=== PATIENT | female | born 1975 | race Asian ===

== ENCOUNTER 2023-06-12 11:07 | Inpatient (IN) | payer OTHER ==
[2023-06-12] MEDS ORDERED: DEXTROSE 5%-LACTATED RINGERS 1,000 ML IV SCH ×2 (12:00→14:00)
[2023-06-12] MEDS: ELECTROLYTE-148 SOLN 1,000 ML IV SCH (13:40)
[2023-06-12 14:45] LABS: BASO % 0.4 % (0-2.0); EOS % 0.2 % (0-4.5); HEMOGLOBIN 10.3 GM/dL (10.7-15.3); LYMPH % 34.1 % (8-40); MCH 24.2 pg (25.7-33.7); MCHC 31.2 g/dl (32.0-36.0); MEAN CELL VOLUME 77.6 fl (80-96); MEAN PLT VOLUME 9.9 fl (7.5-11.1); MONO % 6.6 % (3.8-10.2); NEUT % 58.7 % (42.8-82.8); PLATELET COUNT 149 10^3/uL (134-434); RBC 4.25 M/mm3 (3.60-5.2); RDW 17.5 % (11.6-15.6); WHITE BLOOD COUNT 6.9 K/mm3 (4.0-10.0)
[2023-06-12 14:51] LABS: INR 0.9 (0.83-1.09); PROTHROMBIN TIME (PATIENT) 10.5 SEC (9.7-13.0)
[2023-06-12 14:54] LABS: ACTIVATED PTT 26.5 SECONDS (25.2-36.5)
[2023-06-12 14:57] VITALS: BMI 26.2
[2023-06-12 15:29] LABS: CALCIUM 8.1 mg/dL (8.5-10.1)
[2023-06-12 15:30] LABS: BLOOD UREA NITROGEN 11.4 mg/dL (7-18)
[2023-06-12 15:33] LABS: CREATININE 0.8 mg/dL (0.55-1.3)
[2023-06-12] MEDS ORDERED: OXYTOCIN 30 UNITS in 0.9% NS 30 UNIT/500 ML INFUS.BAG IVPB ONE (15:41)
[2023-06-12] MEDS ORDERED: ONDANSETRON 4 MG/2 ML VIAL ONE (15:42)
[2023-06-12] MEDS ORDERED: METOCLOPRAMIDE HCL INJECTION 10 MG/2 ML VIAL ONE (15:42)
[2023-06-12] MEDS ORDERED: ceFAZolin SODIUM 1 GM VIAL ONE (15:42)
[2023-06-12] MEDS ORDERED: PHENYLEPHRINE HCL 10 MG/1 ML SINGLE DOSE VIAL ONE (15:42)
[2023-06-12 15:43] LABS: POTASSIUM 3.9 mmol/L (3.5-5.1)
[2023-06-12] MEDS ORDERED: morphine SULFATE/PF 1 MG/2 ML (2cc Syringe - QUVA) ONE (15:44)
[2023-06-12] MEDS ORDERED: FENTANYL CITRATE/PF 50 MCG/ML VIAL ONE (15:44)
[2023-06-12] MEDS ORDERED: morphine SULFATE/PF 1 MG/2 ML (2cc Syringe - QUVA) IT ONE (16:05)
[2023-06-12] MEDS ORDERED: oxyCODONE HCL 5 MG TABLET PO PRN ×2 (16:10→16:18)
[2023-06-12] MEDS ORDERED: ONDANSETRON 4 MG/2 ML VIAL IVPB PRN (16:10)
[2023-06-12] MEDS ORDERED: KETOROLAC TROMETHAMINE 30 MG/1 ML VIAL ONE (16:57)
[2023-06-12 17:22] LABS: CORD BASE EXCESS -2.4 mmol/L (0-2); CORD HCO3 25.2 mmHg (20-29); CORD PCO2 54.8 mmHg (30-78); CORD pH 7.281 (7.14-7.44)
[2023-06-12 17:24] LABS: CORD HCO3 26.3 mmHg (20-29); CORD PCO2 58.9 mmHg (30-78); CORD pH 7.267 (7.14-7.44)
[2023-06-12] MEDS: OXYTOCIN 20 UNITS in 0.9% NS 20 UNIT/1,000 ML INFUS.BAG IV SCH ×2 (17:45→20:17)
[2023-06-12] MEDS ORDERED: OXYTOCIN 20 UNITS in 0.9% NS 20 UNIT/1,000 ML INFUS.BAG IV ONE (17:49)
[2023-06-12] MEDS ORDERED: ACETAMINOPHEN INJECTION 100 ML IVPB ONE (17:49)
[2023-06-12] MEDS: ACETAMINOPHEN 1000 MG/100 ML BAG IVPB SCH (17:55)
[2023-06-12] MEDS ORDERED: METHYLERGONOVINE MALEATE 0.2 MG/1 ML AMP IM PRN (18:00)
[2023-06-12 20:57] LABS: HIV INTERPRETATION NEGATIVE (NEGATIVE)
[2023-06-12] MEDS: SENNOSIDES/DOCUSATE COMBO (SENNA PLUS) TABLET (UD) PO SCH (21:40)
[2023-06-12] MEDS ORDERED: ACETAMINOPHEN 1000 MG/100 ML BAG IVPB SCH (22:00)
[2023-06-12] MEDS: IBUPROFEN 800 MG/8 ML IJ IVPB SCH (22:18)
[2023-06-13] MEDS: ACETAMINOPHEN 1000 MG/100 ML BAG IVPB SCH ×3 (02:25→18:12)
[2023-06-13] MEDS: IBUPROFEN 800 MG/8 ML IJ IVPB SCH ×3 (06:09→22:39)
[2023-06-13 07:01] LABS: BASO % 0.2 % (0-2.0); EOS % 0.2 % (0-4.5); HEMATOCRIT 27.2 % (32.4-45.2); HEMOGLOBIN 8.7 GM/dL (10.7-15.3); LYMPH % 17.9 % (8-40); MCH 25.1 pg (25.7-33.7); MCHC 32.1 g/dl (32.0-36.0); MEAN CELL VOLUME 78.2 fl (80-96); MEAN PLT VOLUME 10.2 fl (7.5-11.1); MONO % 6.6 % (3.8-10.2); NEUT % 75.1 % (42.8-82.8); PLATELET COUNT 124 10^3/uL (134-434); RBC 3.48 M/mm3 (3.60-5.2); WHITE BLOOD COUNT 8.4 K/mm3 (4.0-10.0)
[2023-06-13] MEDS: PRENATAL VITAMINS W/ FOLIC ACID TABLET (FP) PO SCH (10:21)
[2023-06-13] MEDS: SIMETHICONE 80 MG TAB.CHEW (FP) PO PRN ×2 (10:21→21:31)
[2023-06-13] MEDS ORDERED: BISACODYL 10 MG SUPP.RECT RC PRN (16:11)
[2023-06-13] MEDS: ELECTROLYTE-148 SOLN 1,000 ML IV SCH (16:37)
[2023-06-13] MEDS: OXYTOCIN 20 UNITS in 0.9% NS 20 UNIT/1,000 ML INFUS.BAG IV SCH (16:37)
[2023-06-13] MEDS: guaiFENesin 200 MG/10 ML 10 ML UNIT-DOSE CUPS PO PRN (21:30)
[2023-06-13] MEDS: SENNOSIDES/DOCUSATE COMBO (SENNA PLUS) TABLET (UD) PO SCH (21:31)
[2023-06-13 21:33] VITALS: RESP 18
[2023-06-14] MEDS: ACETAMINOPHEN 1000 MG/100 ML BAG IVPB SCH (01:52)
[2023-06-14] MEDS: SIMETHICONE 80 MG TAB.CHEW (FP) PO PRN ×4 (01:52→19:14)
[2023-06-14] MEDS: guaiFENesin 200 MG/10 ML 10 ML UNIT-DOSE CUPS PO PRN ×3 (06:15→16:13)
[2023-06-14] MEDS: IBUPROFEN 800 MG/8 ML IJ IVPB SCH (06:16)
[2023-06-14] MEDS: PRENATAL VITAMINS W/ FOLIC ACID TABLET (FP) PO SCH (09:25)
[2023-06-14] MEDS: ACETAMINOPHEN 500 MG TABLET (FP) PO PRN (09:59)
[2023-06-14] MEDS: IBUPROFEN 600 MG TABLET (FP) PO PRN ×2 (12:51→19:14)
[2023-06-14] MEDS: SENNOSIDES/DOCUSATE COMBO (SENNA PLUS) TABLET (UD) PO SCH (21:18)
[2023-06-15] MEDS: SIMETHICONE 80 MG TAB.CHEW (FP) PO PRN (02:00)
[2023-06-15] MEDS: ACETAMINOPHEN 500 MG TABLET (FP) PO PRN (02:00)
[2023-06-15 08:10] VITALS: BP 110/68; PULSE 77; TEMP 98.3
[2023-06-15] MEDS: PRENATAL VITAMINS W/ FOLIC ACID TABLET (FP) PO SCH (10:02)
== END 2023-06-15 13:05 | disposition home or self-care (01) | DRG 540 ==
LOC: JDEL 11:07 → JLDR 13:35 → J3W 20:29
PROVIDERS: ADMIT Family Medicine; ATTEND Family Medicine
PROC: 10D00Z1 Extraction of Products of Conception, Low, Open Approach (ICD-10-PCS; principal; 2023-06-12)
DX: O34.211 Maternal care for low transverse scar from previous cesarean delivery (principal); N85.8 Other specified noninflammatory disorders of uterus; Z3A.38 38 weeks gestation of pregnancy; Z37.0 Single live birth
CPT/HCPCS: 36415; 36600; 80048; 82803; 85025; 85610; 85730; 86780; 86850; 86900; 86901; 87389; 88307-TC; 94010

== ENCOUNTER 2023-06-27 13:51 | Emergency (ER) | payer OTHER ==
[2023-06-27 13:56] VITALS: BP 109/61; PULSE 77; RESP 18; TEMP 98.3; BMI 22.3
== END 2023-06-27 16:01 | disposition home or self-care (01) ==
LOC: JER 13:51
DX: T81.49XA Infection following a procedure, other surgical site, initial encounter (principal)
CPT/HCPCS: 87070; 87186; 87205; 99283-25